=== PATIENT | female | born 1975 | race Caucasian/White ===

== ENCOUNTER 2020-03-09 11:38 | Emergency (ER) | payer OTHER ==
[~2020-03-09] VITALS: Ht 182.9 cm; Wt 80.0 kg
--- NOTE | 2020-03-09 12:26 | PHYS DOC ---
Past History Past Medical History: Anxiety Adult General Chief Complaint Chief Complaint: DIZZY/LIGHT HEADED HPI HPI Patient is a 44-year-old female who presents with generalized dizziness and left ear ringing. Reports history of allergies and anxiety only. Admits increased URI-like symptoms and left ear fullness for past 5 days. Reports waking up today with generalized feelings of dizziness and dull ringing in left ear. No fever, no falls, no vision changes, no chest pain, no shortness of breath or other concerning abnormalities. She denies being on any high risk medications, no recent antibiotic use Review of Systems Review of Systems Fourteen body systems of review of systems have been reviewed. See HPI for pertinent positives and negative responses, other desai all other systems are negative, non-pertinent or non-contributory Allergies Allergies Allergies Coded Allergies Type Severity Reaction Last Updated Verified No Known Drug Allergies 03/09/20 No Physical Exam Physical Exam Constitutional: Well developed, well nourished, no acute distress, non-toxic appearance. HENT: Normocephalic, atraumatic, bilateral external ears normal, oropharynx moist, no oral exudates, moderate postnasal drip present, moderately engorged nasal turbinates with clear rhinorrhea present, external nose normal. Eyes: PERRLA, EOMI, conjunctiva normal, no discharge. Neck: Normal range of motion, no tenderness, supple, no stridor. Cardiovascular: Heart rate regular, sinus rhythm, no murmurs rubs or gallops Lungs & Thorax: Bilateral breath sounds clear to auscultation Abdomen: Bowel sounds normal, soft, no tenderness, no masses, no pulsatile masses. Nonsurgical abdomen, no peritoneal signs Skin: Warm, dry, no erythema, no rash. Back: No tenderness, no CVA tenderness. Extremities: No tenderness, no cyanosis, no clubbing, ROM intact, no edema. Neurologic: Alert and oriented X 3, grossly normal motor & sensory function, no focal deficits noted. Psychologic: Affect normal, judgement normal, mood normal. Current Patient Data Vital Signs Vital Signs Date Time Temp Pulse Resp B/P (MAP) Pulse Ox O2 Delivery O2 Flow Rate FiO2 03/09/20 13:45 64 18 104/62 (76) 100 03/09/20 12:20 97.9 Room Air Lab Results Laboratory Tests Test 03/09/20 12:44 03/09/20 12:45 Glucose (Fingerstick) 98 mg/dL (70-99) White Blood Count 5.3 x10^3/uL (4.0-11.0) Red Blood Count 4.16 x10^6/uL (3.50-5.40) Hemoglobin 12.0 g/dL (12.0-15.5) Hematocrit 36.3 % (36.0-47.0) Mean Corpuscular Volume 87 fL (79-100) Mean Corpuscular Hemoglobin 29 pg (25-35) Mean Corpuscular Hemoglobin Concent 33 g/dL (31-37) Red Cell Distribution Width 12.8 % (11.5-14.5) Platelet Count 172 x10^3/uL (140-400) Neutrophils (%) (Auto) 66 % (31-73) Lymphocytes (%) (Auto) 28 % (24-48) Monocytes (%) (Auto) 5 % (0-9) Eosinophils (%) (Auto) 1 % (0-3) Basophils (%) (Auto) 1 % (0-3) Neutrophils # (Auto) 3.5 x10^3uL (1.8-7.7) Lymphocytes # (Auto) 1.5 x10^3/uL (1.0-4.8) Monocytes # (Auto) 0.2 x10^3/uL (0.0-1.1) Eosinophils # (Auto) 0.0 x10^3/uL (0.0-0.7) Basophils # (Auto) 0.0 x10^3/uL (0.0-0.2) Sodium Level 141 mmol/L (136-145) Potassium Level 3.2 mmol/L (3.5-5.1) Chloride Level 107 mmol/L (98-107) Carbon Dioxide Level 23 mmol/L (21-32) Anion Gap 11 (6-14) Blood Urea Nitrogen 13 mg/dL (7-20) Creatinine 0.9 mg/dL (0.6-1.0) Estimated GFR (Cockcroft-Gault) 68.3 BUN/Creatinine Ratio 14 (6-20) Glucose Level 102 mg/dL (70-99) Calcium Level 9.2 mg/dL (8.5-10.1) Total Bilirubin 0.3 mg/dL (0.2-1.0) Aspartate Amino Transf (AST/SGOT) 14 U/L (15-37) Alanine Aminotransferase (ALT/SGPT) 21 U/L (14-59) Alkaline Phosphatase 62 U/L (46-116) Troponin I Quantitative < 0.017 ng/mL (0-0.055) Total Protein 7.1 g/dL (6.4-8.2) Albumin 3.9 g/dL (3.4-5.0) Albumin/Globulin Ratio 1.2 (1.0-1.7) EKG EKG EKG ordered and interpreted by myself at 1230 hrs. as sinus rhythm at 59 bpm, unremarkable intervals, no axis deviation, no ischemic findings, no STEMI Radiology/Procedures Radiology/Procedures PROCEDURE: CHEST AP ONLY Examination: CHEST AP ONLY History: dizziness Comparison: None. Findings: AP portable upright frontal view of the chest was obtained. The cardiomediastinal silhouette is normal. Lungs are clear. There is no pneumothorax. No pleural effusion is appreciated. No acute bone abnormality. IMPRESSION: No acute cardiopulmonary process. Electronically signed by: Kuldeep Silva MD (03/09/2020 12:49 PM) [id number] Heart Score Risk Factors: Risk Factors: DM, Current or recent (<one month) smoker, HTN, HLP, family history of CAD, obesity. Risk Scores: Risk Factors: DM, Current or recent (<one month) smoker, HTN, HLP, family history of CAD, obesity. Course & Med Decision Making Course & Med Decision Making Pertinent Labs and Imaging studies reviewed. (See chart for details) Discussed most likely diagnosis of self-limiting causes of dizziness which given URI like findings, I feel it is likely labrynthitis which is likely causing patient's symptomology Nonetheless, I disclosed this might be an acute presentation more concerning pathology and thus, close outpatient follow-up is advised. I disclosed this might be something as significant as an auditory tumor etc. Given patient is well-appearing, hemodynamically stable, tolerating p.o. intake without any gait abnormalities or concern for falls, I feel she is safe for discharge home with continued supportive care new short-term prescription of prednisone Patient has good access to primary care physician, she reports she can be seen within upcoming 72 hours, I feel this is appropriate Strict return precautions were discussed with good understanding by patient, all questions and concerns addressed prior to ER departure in stable condition Adriel Disclaimer Adriel Disclaimer This electronic medical record was generated, in whole or in part, using a voice recognition dictation system. Departure Departure: Impression: Primary Impression: Dizziness Disposition: 01 DC HOME SELF CARE/HOMELESS Condition: IMPROVED Referrals: PCP,UNKNOWN (PCP) Patient Instructions: Dizziness Additional Instructions: As instructed prior to ER departure, please call your primary care physician first thing after ER departure to schedule outpatient follow-up in upcoming 1 to 10 days time Please take prescribed steroids as written to completion. Continue keeping yourself well hydrated and taking Zyrtec daily As discussed, you were diagnosed with labyrinthitis which is likely causing all of your presenting symptoms today With that said, this might be an acute presentation more concerning pathology and thus it is important to follow-up with your outpatient primary care physician to ensure symptomatic improvement If any concerning signs or symptoms present prior to outpatient follow-up despite supportive care advised, please do not hesitate to come back for repeat evaluation It was a pleasure to take care of you and I wish you a speedy recovery! Scripts Methylprednisolone (MEDROL) 4 Mg Tab.ds.pk 1 PKG PO UD for LABRYNTHITIS, #1 PKG Prov: HAWA SEYMOUR DO 03/09/20 HAWA SEYMOUR DO Mar 09, 2020 12:26
--- NOTE | 2020-03-09 12:52 | RAD ---
Examination: CHEST AP ONLY History: dizziness Comparison: None. Findings: AP portable upright frontal view of the chest was obtained. The cardiomediastinal silhouette is normal. Lungs are clear. There is no pneumothorax. No pleural effusion is appreciated. No acute bone abnormality. IMPRESSION: No acute cardiopulmonary process. Electronically signed by: Kuldeep Silva MD (03/09/2020 12:49 PM) [id number]
[2020-03-09 13:11] LABS: BASO % 1 % (0-3); EOS % 1 % (0-3); HEMATOCRIT 36.3 % (36.0-47.0); LYMPH # 1.5 x10^3/uL (1.0-4.8); LYMPH % 28 % (24-48); MEAN CORPUSCULAR HEMOGLOBIN 29 pg (25-35); MEAN CORPUSCULAR HGB CONC 33 g/dL (31-37); MEAN CORPUSCULAR VOLUME 87 fL (79-100); MONO # 0.2 x10^3/uL (0.0-1.1); MONO % 5 % (0-9); NEUT # 3.5 x10^3uL (1.8-7.7); NEUT % 66 % (31-73); PLATELET COUNT 172 x10^3/uL (140-400); RED BLOOD COUNT 4.16 x10^6/uL (3.50-5.40); RED CELL DISTRIBUTION WIDTH 12.8 % (11.5-14.5); WHITE BLOOD COUNT 5.3 x10^3/uL (4.0-11.0)
[2020-03-09 13:17] LABS: CALCIUM 9.2 mg/dL (8.5-10.1); CREATININE 0.9 mg/dL (0.6-1.0); GFR 68.3; POTASSIUM 3.2 mmol/L (3.5-5.1)
[2020-03-09 13:23] LABS: ALBUMIN 3.9 g/dL (3.4-5.0); ALBUMIN/GLOBULIN RATIO 1.2 (1.0-1.7); TOTAL BILIRUBIN 0.3 mg/dL (0.2-1.0); TOTAL PROTEIN 7.1 g/dL (6.4-8.2)
[2020-03-09] MEDS ORDERED: IV NORMAL SALINE 1,000ML 1,000 ML IV ONE (13:45)
[2020-03-09 13:55] LABS: BILIRUBIN,URINE NEG (NEG); CLARITY,URINE CLOUDY; COLOR,URINE YELLOW; GLUCOSE,URINE NEG (NEG); NITRITE,URINE NEG (NEG); UROBILINOGEN,URINE 0.2 mg/dL (0.2 mg/dL)
[2020-03-09 13:56] LABS: BACTERIA,URINE FEW /HPF (0-FEW); SQUAMOUS EPITHELIAL CELL,UR FEW /LPF
[2020-03-09 13:57] LABS: AMORPHOUS SEDIMENT,UR PRESENT /HPF
[2020-03-09 13:58] LABS: U PREG PATIENT NEGATIVE (NEG)
[2020-03-09] MEDS ORDERED: METH4TAB2 PO (14:41)
[2020-03-09] MEDS ORDERED: POTASSIUM CHLORIDE 20 MEQ TABLET.ER. PO ONE (15:00)
[2020-03-09 15:06] VITALS: BP 109/74
[2020-03-09] MEDS ORDERED: predniSONE 20 MG TABLET PO ONE (15:15)
--- NOTE | 2020-03-10 06:38 | EKG ---
[address] [address] Test Date: 2020-03-09 Test Time: 12:26:41 Pat Name: SAVAGE JACOBSON Department: Room: Gender: F Quality Control Tech: [facility] : 1975 Requested By: HAWA SEYMOUR Order Number: [id number] Reading MD: Measurements Intervals [place] Rate: 59 P: 56 [place]: 176 QRS: 56 QRSD: 76 T: 49 QT: 446 QTc: 446 Interpretive Statements SINUS RHYTHM NO SPECIFIC ECG ABNORMALITIES RI6.02 No previous ECG available for comparison
== END 2020-03-09 15:08 | disposition home or self-care (01) ==
LOC: ER 11:38
DX: R42 Dizziness and giddiness (principal); H93.12 Tinnitus, left ear; R09.82 Postnasal drip; F41.9 Anxiety disorder, unspecified
CPT/HCPCS: 36415; 71045; 80053; 81001; 81025; 82947; 84484; 85025; 87086; 93005; 96360; 99285; J7030; J7512

== ENCOUNTER 2020-10-02 17:31 | Emergency (ER) | payer OTHER ==
[~2020-10-02] VITALS: Ht 182.9 cm; Wt 82.0 kg
[~2020-10-02 17:31] MED LIST: METH4TAB2 PO
[2020-10-02 17:40] VITALS: BP 117/74
--- NOTE | 2020-10-02 18:25 | RAD ---
CT HEAD/BRAIN WO Date: 10/02/2020 6:04 PM Clinical Indication: eye and mouth droop Comparison: None. Technique: 5 mm axial tomographic images were obtained of the head without contrast. These were view ed on brain and bone windows. One or more of the following dose reduction techniques were utilized: A utomated exposure control (AEC), Adjustment of mA and/or kV according to patient size, Use of iterati ve reconstruction technique such as ASiR, CT scan done according to ALARA and image gently/image desai ly Findings: The brain parenchyma is normal in attenuation. No intra- or extra-axial mass or fluid collection. No acute hemorrhage. The ventricles are normal in size, shape, and morphology. The pemberton-white matter mirtha ction is normal. The subarachnoid cisterns are patent. The visualized paranasal sinuses are normal. The visualized portions of the orbits and globes are no rmal. The mastoid air cells are clear. The ambulance officer topogram shows no lytic lesion or fracture. Impression: No acute intracranial process. Electronically signed by: Jose Elias Arnett MD (10/02/2020 6:23 PM) [facility]
[2020-10-02 18:36] LABS: BASO % 1 % (0-3); CREATININE 0.8 mg/dL (0.6-1.0); EOS # 0.1 x10^3/uL (0.0-0.7); EOS % 2 % (0-3); GFR 77.9; HEMOGLOBIN 12.4 g/dL (12.0-15.5); LYMPH # 2.3 x10^3/uL (1.0-4.8); LYMPH % 52 % (24-48); MEAN CORPUSCULAR HEMOGLOBIN 30 pg (25-35); MEAN CORPUSCULAR HGB CONC 34 g/dL (31-37); MEAN CORPUSCULAR VOLUME 89 fL (79-100); MONO # 0.3 x10^3/uL (0.0-1.1); MONO % 6 % (0-9); NEUT # 1.7 x10^3uL (1.8-7.7); NEUT % 40 % (31-73); PLATELET COUNT 173 x10^3/uL (140-400); POTASSIUM 3.5 mmol/L (3.5-5.1); RED BLOOD COUNT 4.06 x10^6/uL (3.50-5.40); RED CELL DISTRIBUTION WIDTH 12.9 % (11.5-14.5); WHITE BLOOD COUNT 4.3 x10^3/uL (4.0-11.0)
[2020-10-02 18:42] LABS: ALBUMIN 3.8 g/dL (3.4-5.0); ALBUMIN/GLOBULIN RATIO 1.2 (1.0-1.7); TOTAL BILIRUBIN 0.4 mg/dL (0.2-1.0); TOTAL PROTEIN 6.9 g/dL (6.4-8.2)
[2020-10-02 18:53] LABS: BACTERIA,URINE 0 /HPF (0-FEW); BILIRUBIN,URINE NEG (NEG); CLARITY,URINE CLEAR; COLOR,URINE YELLOW; GLUCOSE,URINE NEG (NEG); NITRITE,URINE NEG (NEG); RBC,URINE OCC /HPF (0-2); SQUAMOUS EPITHELIAL CELL,UR FEW /LPF; UROBILINOGEN,URINE 0.2 mg/dL (0.2 mg/dL); WBC,URINE OCC /HPF (0-4)
[2020-10-02 18:54] LABS: AMORPHOUS SEDIMENT,UR PRESENT /HPF
--- NOTE | 2020-10-02 19:23 | PHYS DOC ---
Past History Past Medical History: Anxiety, Migraines (JOELLE TAMEZ APRN) Past Surgical History: Hysterectomy (JOELLE TAMEZ APRN) Alcohol Use: None (JOELLE TAMEZ APRN) General Adult EDM: Chief Complaint: NEURO SYMPTOMS/DEFICITS HPI: HPI: Patient is a 45-year-old female presents with left eye droop. Patient states that she noticed symptoms on Monday. Patient denies any sensory changes or weakness. Patient has a history of migraines and received Botox 2 weeks ago. Patient also takes Topamax and sumatriptan for migraines. Patient denies pain. Denies facial numbness. Denies visual changes. Patient's only history is migraines. (JOELLE TAMEZ APRN) Review of Systems: Review of Systems: Constitutional: Denies fever or chills Eyes: Denies change in visual acuity. Reports left, eyelid droop HENT: Denies nasal congestion or sore throat Respiratory: Denies cough or shortness of breath Cardiovascular: Denies chest pain or edema GI: Denies abdominal pain, nausea, vomiting, bloody stools or diarrhea : Denies dysuria Musculoskeletal: Denies back pain or joint pain Integument: Denies rash Neurologic: Denies headache, focal weakness or sensory changes Endocrine: Denies polyuria or polydipsia Lymphatic: Denies swollen glands Psychiatric: Denies depression or anxiety (JOELLE TAMEZ APRN) Allergies: Allergies: Allergies Coded Allergies Type Severity Reaction Last Updated Verified No Known Drug Allergies 10/02/20 No (JOELLE TAMEZ APRN) Physical Exam: PE: Constitutional: Well developed, well nourished, no acute distress, non-toxic appearance. HENT: Normocephalic, atraumatic, bilateral external ears normal, oropharynx moist, no oral exudates, nose normal. Eyes: PERRLA, EOMI, conjunctiva normal, left eyelid droop Neck: Normal range of motion, no tenderness, no stridor. Cardiovascular:Heart rate regular rhythm, no murmur Lungs & Thorax: Bilateral breath sounds clear to auscultation Abdomen: Bowel sounds normal, soft, no tenderness Skin: Warm, dry, no erythema, no rash. Back: No tenderness, no CVA tenderness. Extremities: No tenderness, no cyanosis, no clubbing, ROM intact, no edema. [] Neurologic: Alert and oriented X 3, normal motor function, normal sensory function, no focal deficits noted. Psychologic: Affect normal, judgement normal, mood normal. (JOELLE TAMEZ APRN) Current Patient Data: Labs: Laboratory Tests Test 10/02/20 18:00 10/02/20 18:05 Urine Collection Type Unknown Urine Color Yellow Urine Clarity Clear Urine pH 7.0 Urine Specific [place] 1.015 Urine Protein Neg (NEG-TRACE) Urine Glucose (UA) Neg mg/dL (NEG) Urine Ketones (Stick) Neg mg/dL (NEG) Urine Blood Neg (NEG) Urine Nitrite Neg (NEG) Urine Bilirubin Neg (NEG) Urine Urobilinogen Dipstick 0.2 mg/dL (0.2 mg/dL) Urine Leukocyte Esterase Neg (NEG) Urine RBC Occ /HPF (0-2) Urine WBC Occ /HPF (0-4) Urine Squamous Epithelial Cells Few /LPF Urine Amorphous Sediment Present /HPF Urine Bacteria 0 /HPF (0-FEW) Urine Mucus Slight /LPF White Blood Count 4.3 x10^3/uL (4.0-11.0) Red Blood Count 4.06 x10^6/uL (3.50-5.40) Hemoglobin 12.4 g/dL (12.0-15.5) Hematocrit 36.0 % (36.0-47.0) Mean Corpuscular Volume 89 fL (79-100) Mean Corpuscular Hemoglobin 30 pg (25-35) Mean Corpuscular Hemoglobin Concent 34 g/dL (31-37) Red Cell Distribution Width 12.9 % (11.5-14.5) Platelet Count 173 x10^3/uL (140-400) Neutrophils (%) (Auto) 40 % (31-73) Lymphocytes (%) (Auto) 52 % (24-48) H Monocytes (%) (Auto) 6 % (0-9) Eosinophils (%) (Auto) 2 % (0-3) Basophils (%) (Auto) 1 % (0-3) Neutrophils # (Auto) 1.7 x10^3uL (1.8-7.7) L Lymphocytes # (Auto) 2.3 x10^3/uL (1.0-4.8) Monocytes # (Auto) 0.3 x10^3/uL (0.0-1.1) Eosinophils # (Auto) 0.1 x10^3/uL (0.0-0.7) Basophils # (Auto) 0.0 x10^3/uL (0.0-0.2) Sodium Level 145 mmol/L (136-145) Potassium Level 3.5 mmol/L (3.5-5.1) Chloride Level 109 mmol/L (98-107) H Carbon Dioxide Level 24 mmol/L (21-32) Anion Gap 12 (6-14) Blood Urea Nitrogen 9 mg/dL (7-20) Creatinine 0.8 mg/dL (0.6-1.0) Estimated GFR (Cockcroft-Gault) 77.9 BUN/Creatinine Ratio 11 (6-20) Glucose Level 95 mg/dL (70-99) Calcium Level 9.0 mg/dL (8.5-10.1) Total Bilirubin 0.4 mg/dL (0.2-1.0) Aspartate Amino Transferase (AST) 14 U/L (15-37) L Alanine Aminotransferase (ALT) 21 U/L (14-59) Alkaline Phosphatase 64 U/L (46-116) Total Protein 6.9 g/dL (6.4-8.2) Albumin 3.8 g/dL (3.4-5.0) Albumin/Globulin Ratio 1.2 (1.0-1.7) Vital Signs: Vital Signs Date Time Temp Pulse Resp B/P (MAP) Pulse Ox O2 Delivery O2 Flow Rate FiO2 10/02/20 17:40 97.7 59 16 117/74 (88) 98 (JOELLE TAMEZ APRN) EKG: EKG: [] (JOELLE TAMEZ APRN) Radiology/Procedures: Radiology/Procedures: [] (JOELLE TAMEZ APRN) Heart Score: C/O Chest Pain: No Risk Factors: Risk Factors: DM, Current or recent (<one month) smoker, HTN, HLP, family history of CAD, obesity. Risk Scores: Score 0 - 3: 2.5% MACE over next 6 weeks - Discharge Home Score 4 - 6: 20.3% MACE over next 6 weeks - Admit for Clinical Observation Score 7 - 10: 72.7% MACE over next 6 weeks - Early Invasive Strategies (JOELLE TAMEZ APRN) Course & Med Decision Making: Course & Med Decision Making Pertinent Labs and Imaging studies reviewed. (See chart for details) [] Nontoxic appearing, 45-year-old female who presents with left eye droop. Patient says that symptoms started on Monday. Afebrile. Patient is alert and oriented X 3. Patient has normal sensory function, no focal defects noted. Denies weakness. Patient is able to close her eye completely. No indication for eye protection needed. Patient denies pain. Patient does have a history of migraines and takes Topamax and sumatriptan. Denies migraine at this time. Patient states that she takes migraine medication a couple times a week. Patient reports she received Botox on her forehead 2 weeks ago to help with migraines. CT of head was negative for intracranial bleeding or acute abnormalities. All labs were unremarkable. Patient is hemodynamically stable and ambulated on her own into the emergency room. Patient most likely is experiencing ptosis in the left eye from Botox injection. Patient given strict return precautions. Patient to return emergency room if she starts having weakness, sensory changes, altered mental status. Patient states that she understands. Advised patient to follow-up with her PCP on Monday. Patient does not have a relationship with a neurologist at this time. Patient is appreciative and okay with discharge plan. (JOELLE TAMEZ APRN) Course & Med Decision Making Did not see or evaluate patient. Agree with SENIOR ACCOUNTS PAYABLE SPECIALIST's work-up and disposition per note. (STEPHON MAGANA MD) Dragon Disclaimer: Dragon Disclaimer: This electronic medical record was generated, in whole or in part, using a voice recognition dictation system. (JOELLE TAMEZ APRN) Departure Departure: Impression: Primary Impression: Ptosis of eyelid, left Additional Impression: History of migraine Disposition: HOME / SELF CARE / HOMELESS Condition: STABLE Referrals: KYLE BRENNER (PCP) Additional Instructions: You were seen in the emergency room for left eyelid droop. We did a CT of your head which was negative for any acute abnormalities. All of your lab work was negative. Believe that you are most likely experiencing ptosis of your left eyelid due to Botox injection. You need to return to the emergency room immediately if you have increasing pain, visual changes, weakness, numbness or tingling, change in mental status. Please follow-up with your PCP on Monday, let them know you were seen in the emergency room and that you need to have a follow-up appointment. I have provided you with a copy of your CT results for you to show to your PCP. EMERGENCY DEPARTMENT GENERAL DISCHARGE INSTRUCTIONS Thank you for coming to [facility] (ED) today and trusting us with you care. We trust that you had a positivie experience in our Emergency Department. If you wish to speak to the department management, you may call the director at [phone]. YOUR FOLLOW UP INSTRUCTIONS ARE FOLLOWS: 1. Do you have a private Doctor? If you do not have a private doctor, please ask for a resource list of physicians or clinics that may be able to assist you with follow up care. 2. The Emergency Physician has interpreted your x-rays. The X-Ray specialist will also review them. If there is a change in the findings, you will be notified in 48 hours when at all possible. 3. A lab test or culture has been done, your results will be reviewed and you will be notified if you need a change in treatment. ADDITIONAL INSTRUCTIONS AND INFORMATION: 1. Your care today has been supervised by a physician who is specially trained in emergency care. Many problems require more than one evaluation for a complete diagnosis and treatment. We recommend that you schedule your follow up appointment as recommended to ensure complete treatment of you illness or injury. If you are unable to obtain follow up care and continue to have a problem, or if your condition worsens, we recommend that you return to the ED. 2. We are not able to safely determine your condition over the phone nor are we able to give sound medical advice over the phone. For these safety reasons, if you call for medical advice we will ask you to come to the ED for further evaluation. 3. If you have any questions regarding these discharge instructions please call the ED at [phone]. SAFETY INFORMATION: In the interest of safety, wellness, and injury prevention; we encourage you to wear your sealbelt, if you smoke; quite smoking, and we encourage family to use a protective helmet for bicycling and other sporting events that present an increased risk for head injury. IF YOUR SYMPTOMS WORSEN OR NEW SYMPTOMS DEVELOP, OR YOU HAVE CONCERNS ABOUT YOUR CONDITION; OR IF YOUR CONDITION WORSENS WHILE YOU ARE WAITING FOR YOUR FOLLOW UP APPOINTMENT; EITHER CONTACT YOUR PRIMARY CARE DOCTOR, THE PHYSICIAN WHOSE NAME AND NUMBER YOU WERE GIVEN, OR RETURN TO THE ED IMMEDIATELY. JOELLE TAMEZ APRN Oct 02, 2020 19:23 STEPHON MAGANA MD Oct 02, 2020 22:51
--- NOTE | 2020-10-02 23:20 | EKG ---
[address] [address] Test Date: 2020-10-02 Test Time: 18:33:45 Pat Name: SAVAGE JACOBSON Department: Room: Gender: F Design And Sales Consultant: : 1975 Requested By: JOELLE TAMEZ Order Number: [id number] Reading MD: Measurements Intervals [place] Rate: 56 P: 59 [place]: 174 QRS: 47 QRSD: 82 T: 38 QT: 456 QTc: 443 Interpretive Statements SINUS RHYTHM NO SPECIFIC ECG ABNORMALITIES RI6.02 No previous ECG available for comparison
== END 2020-10-02 19:54 | disposition home or self-care (01) ==
LOC: ER 17:31
DX: H02.402 Unspecified ptosis of left eyelid (principal); G43.909 Migraine, unspecified, not intractable, without status migrainosus; F41.9 Anxiety disorder, unspecified; Z90.710 Acquired absence of both cervix and uterus
CPT/HCPCS: 36415; 70450; 80053; 81001; 85025; 93005; 99285-25

== ENCOUNTER 2021-02-28 14:34 | Emergency (ER) | payer OTHER ==
[~2021-02-28] VITALS: Ht 182.9 cm; Wt 82.0 kg
[2021-02-28 14:50] VITALS: BP 122/67
[2021-02-28] MEDS ORDERED: SUMAtriptan SUCCINATE 50 MG TABLET PO ONE (15:00)
[2021-02-28] MEDS ORDERED: ONDANSETRON ODT 4 MG TAB.RAPDIS PO ONE (15:00)
[2021-02-28] MEDS ORDERED: SUMA100T4 PO (15:02)
[2021-02-28] MEDS ORDERED: ONDA4TAB12 PO (15:02)
--- NOTE | 2021-02-28 15:03 | PHYS DOC ---
Past History Past Medical History: Anxiety, Migraines (MARCELA PATEL CHAUFFEUR) Past Surgical History: Hysterectomy (MARCELA PATEL APRN) Alcohol Use: None (MARCELA PATEL APRN) Adult General Chief Complaint Chief Complaint: HEADACHE HPI HPI Patient is a 45-year-old female patient with history of anxiety and migraine hea daches presenting to the ED today reporting exacerbation of migraine headache, symptoms began 4 days ago with nausea no vomiting. Patient states she used to be on sumatriptan but the PCP switched her to a different medicine that insurance is not going to cover. She currently does not have any medicine. Denies any fever, denies this being the worst headache in her life. Reports light sensitivity and noise sensitivity. (MARCELA PATEL APRN) Review of Systems Review of Systems Constitutional: Denies fever or chills [] Eyes: Denies change in visual acuity, redness, or eye pain [] HENT: Denies nasal congestion or sore throat [] Respiratory: Denies cough or shortness of breath [] Cardiovascular: No additional information not addressed in HPI [] GI: Reports nausea. Denies abdominal pain, vomiting, bloody stools or diarrhea [] : Denies dysuria or hematuria [] Musculoskeletal: Denies back pain or joint pain [] Integument: Denies rash or skin lesions [] Neurologic: Reports migraine headache, focal weakness or sensory changes [] All other systems were reviewed and found to be within normal limits, except as documented in this note. (MARCELA PATEL APRN) Current Medications Current Medications Current Medications Medications (Trade) Dose Ordered Sig/Nicci Start Time Stop Time Status Last Admin Dose Admin Ondansetron HCl (Zofran Odt) 4 mg 1X ONCE 02/28/21 15:00 02/28/21 15:01 UNV Sumatriptan Succinate (Imitrex) 100 mg 1X ONCE 02/28/21 15:00 02/28/21 15:01 UNV (MARCELA PATEL CHAUFFEUR) Allergies Allergies Allergies Coded Allergies Type Severity Reaction Last Updated Verified No Known Drug Allergies 10/02/20 No (MARCELA PATEL APRN) Physical Exam Physical Exam Constitutional: Well developed, well nourished, no acute distress, non-toxic appearance. [] HENT: Normocephalic, atraumatic, bilateral external ears normal, oropharynx moist, no oral exudates, nose normal. [] Eyes: PERRLA, EOMI, conjunctiva normal, no discharge. [] Neck: Normal range of motion, no tenderness, supple, no stridor. [] Cardiovascular:Heart rate regular rhythm, no murmur [] Lungs & Thorax: Bilateral breath sounds clear to auscultation [] Abdomen: Bowel sounds normal, soft, no tenderness, no masses, no pulsatile masses. [] Skin: Warm, dry, no erythema, no rash. [] Back: No tenderness, no CVA tenderness. [] Extremities: No tenderness, no cyanosis, no clubbing, ROM intact, no edema. [] Neurologic: Alert and oriented X 3, normal motor function, normal sensory function, no focal deficits noted. Cranial nerves II through XII Psychologic: Affect normal, judgement normal, mood normal. [] (MARCELA PATEL APRN) EKG EKG [] (MARCELA PATEL APRN) Radiology/Procedures Radiology/Procedures [] (MARCELA PATEL APRN) Heart Score C/O Chest Pain: N/A Risk Factors: Risk Factors: DM, Current or recent (<one month) smoker, HTN, HLP, family history of CAD, obesity. Risk Scores: Risk Factors: DM, Current or recent (<one month) smoker, HTN, HLP, family history of CAD, obesity. (MARCELA PATEL APRN) Course & Med Decision Making Course & Med Decision Making Pertinent Labs and Imaging studies reviewed. (See chart for details) This is a 45-year-old female patient presenting to the ED today with a migraine headache for 4 days. Out of sumatriptan. There is nothing unusual about her headache today. Rx given for sumatriptan. (MARCELA PATEL APRN) Dragon Disclaimer Dragon Disclaimer This electronic medical record was generated, in whole or in part, using a voice recognition dictation system. (MARCELA PATEL APRN) Attending Co-Sign The patient was seen and interviewed as well as examined at the bedside. The chart was reviewed. The case was discussed. Agree with the plan of care. (DAMARIS MAC DO) Departure Departure: Impression: Primary Impression: Migraine headache Additional Impression: Nausea Disposition: 01 HOME / SELF CARE / HOMELESS Condition: STABLE Referrals: RENETTA KAUR APRN (PCP) follow up next week Patient Instructions: Migraine Headache Additional Instructions: You were seen for a migraine headache. Take the prescribed medications as ordered. Follow-up with your doctor in in a week Scripts Ondansetron (ONDANSETRON ODT) 4 Mg Tab.rapdis 1 TAB PO PRN Q6-8HRS, #16 TAB Prov: MARCELA PATEL APRN 02/28/21 Sumatriptan Succinate (SUMATRIPTAN SUCCINATE) 100 Mg Tablet 1 TAB PO UD, #9 TAB 3 Refills Prov: MARCELA PATEL APRN 02/28/21 Problem Qualifiers Primary Impression: Migraine headache Migraine type: unspecified Status migrainosus presence: without status migrainosus Intractability: not intractable Qualified Codes: G43.909 - Migraine, unspecified, not intractable, without status migrainosus MARCELA PATEL APRN Feb 28, 2021 15:03 DAMARIS MAC DO Mar 02, 2021 12:56
== END 2021-02-28 15:50 | disposition home or self-care (01) ==
LOC: ER 14:34
DX: G43.909 Migraine, unspecified, not intractable, without status migrainosus (principal); R11.0 Nausea; F41.9 Anxiety disorder, unspecified
CPT/HCPCS: 99283; Q0162

== ENCOUNTER 2021-09-01 08:39 | Emergency (ER) | payer OTHER ==
[~2021-09-01] VITALS: Ht 182.9 cm; Wt 81.7 kg
[~2021-09-01 08:39] MED LIST changes: +ONDA4TAB12 PO; +SUMA100T4 PO
--- NOTE | 2021-09-01 09:25 | PHYS DOC ---
Past History Past Medical History: Anxiety, Migraines Past Surgical History: Hysterectomy, Oophorectomy Alcohol Use: None General Adult EDM: Chief Complaint: HEADACHE HPI: HPI: Patient is a 45-year-old female coming in for headache that woke her at 3 AM, about 6 hours prior to arrival. Patient has been having numerous episodes of emesis. Tried taking her sumatriptan and Zofran but is unsure if they stay down. Patient states the headache is pressure-like on the right front. Complaining of photophobia and autophobia. Patient states this is like her typical migraines but is unable to treat at home due to vomiting. Review of Systems: Review of Systems: All other systems within normal limits except for as noted in the HPI Allergies: Allergies: Allergies Coded Allergies Type Severity Reaction Last Updated Verified No Known Drug Allergies 09/01/21 No Physical Exam: PE: Constitutional: Well developed, well nourished, no acute distress, non-toxic appearance. [] HENT: Normocephalic, atraumatic, bilateral external ears normal, nose normal. No temporal tenderness to palpation [] Eyes: PERRLA, conjunctiva normal, no discharge. [] Neck: No rigidity, supple, no stridor. [] Cardiovascular: Regular rate and rhythm, brisk cap refill [] Lungs & Thorax: Non labored symmetric respirations, no tachypnea or respiratory distress [] Abdomen: Soft, nondistended. Skin: Warm, dry, no erythema, no rash. [] Back: Unremarkable Extremities: No deformities, range of motion grossly intact, no lower extremity edema [] Neurologic: Alert and oriented X 3, no focal deficits noted. [] Psychologic: Affect normal, judgement normal, mood normal. [] Current Patient Data: Vital Signs: Vital Signs Date Time Temp Pulse Resp B/P (MAP) Pulse Ox O2 Delivery O2 Flow Rate FiO2 09/01/21 08:55 65 18 117/75 (89) 99 Room Air EKG: EKG: [] Radiology/Procedures: Radiology/Procedures: [] Heart Score: C/O Chest Pain: No Risk Factors: Risk Factors: DM, Current or recent (<one month) smoker, HTN, HLP, family history of CAD, obesity. Risk Scores: Score 0 - 3: 2.5% MACE over next 6 weeks - Discharge Home Score 4 - 6: 20.3% MACE over next 6 weeks - Admit for Clinical Observation Score 7 - 10: 72.7% MACE over next 6 weeks - Early Invasive Strategies Course & Med Decision Making: Course & Med Decision Making Patient states that her symptoms are her baseline headache and does not want any further work-up. Patient is asking for pain relief. Dragon Disclaimer: Adriel Disclaimer: This electronic medical record was generated, in whole or in part, using a voice recognition dictation system. Departure Departure: Impression: Primary Impression: Migraine headache Disposition: HOME / SELF CARE / HOMELESS Condition: IMPROVED Referrals: RENETTA KAUR APRN (PCP) Patient Instructions: Migraine Headache ESTELA CRONIN MD September 01, 2021 09:25
[2021-09-01] MEDS ORDERED: IV NORMAL SALINE 1,000ML 1,000 ML IV ONE (09:30)
[2021-09-01] MEDS ORDERED: diphenhydrAMINE 50 MG/ML VIAL IVP ONE (09:30)
[2021-09-01] MEDS ORDERED: PROCHLORPERAZINE 10 MG/2 ML VIAL. IV ONE (09:30)
[2021-09-01] MEDS ORDERED: KETOROLAC 15 MG/ML VIAL. IVP ONE (09:30)
[2021-09-01 10:50] VITALS: BP 132/80
== END 2021-09-01 10:56 | disposition home or self-care (01) ==
LOC: ER 08:39
DX: G43.909 Migraine, unspecified, not intractable, without status migrainosus (principal); F41.9 Anxiety disorder, unspecified
CPT/HCPCS: 96361; 96374; 96375; 99284; J0780; J1200; J1885; J7030